=== PATIENT | male | born 1975 | race Two or more races ===

== ENCOUNTER 2020-06-10 17:57 | Emergency (ER) | payer OTHER ==
[~2020-06-10] VITALS: Ht 177.8 cm; Wt 103.0 kg
[2020-06-10 22:31] VITALS: BP 140/68
== END 2020-06-10 23:26 | disposition home or self-care (01) ==
LOC: ER 17:57
DX: T23.161A Burn of first degree of back of right hand, initial encounter (principal); T24.121A Burn of first degree of right knee, initial encounter; I10 Essential (primary) hypertension; E78.5 Hyperlipidemia, unspecified; Z88.0 Allergy status to penicillin; X08.8XXA Exposure to other specified smoke, fire and flames, initial encounter; Y93.89 Activity, other specified; Y92.89 Other specified places as the place of occurrence of the external cause; Y99.8 Other external cause status